=== PATIENT | female | born 1995 | race African-American/Black ===

== ENCOUNTER 2019-09-15 08:01 | Emergency (ER) | payer SELFPAY ==
[2019-09-15] MEDS ORDERED: Acetaminophen 325 MG TAB ONE (08:42)
== END 2019-09-15 08:54 | disposition home or self-care (01) ==
LOC: ERS 08:01
DX: M79.10 Myalgia, unspecified site (principal)
CPT/HCPCS: 87804; 99284

== ENCOUNTER 2022-09-06 13:24 | Emergency (ER) | payer SELFPAY ==
[2022-09-06] MEDS ORDERED: Ibuprofen 800 MG TAB ONE (13:47)
== END 2022-09-06 14:49 | disposition home or self-care (01) ==
LOC: ERS 13:24
DX: U07.1 COVID-19 (principal); J06.9 Acute upper respiratory infection, unspecified
CPT/HCPCS: 87081; 87430; 87804; 99283; U0003; U0005

== ENCOUNTER 2022-12-27 11:40 | Emergency (ER) | payer SELFPAY ==
[2022-12-27 13:15] LABS: SARS-CoV-2 NAA Rapid Test Not Detected (NotDetected)
== END 2022-12-27 12:34 | disposition home or self-care (01) ==
LOC: ERS 11:40
DX: B34.9 Viral infection, unspecified (principal); Z20.822 Contact with and (suspected) exposure to COVID-19
CPT/HCPCS: 99283

== ENCOUNTER 2023-09-19 14:54 | Emergency (ER) | payer SELFPAY ==
[2023-09-19] MEDS ORDERED: Dexamethasone 10 MG/ML VIAL ONE (16:00)
[2023-09-19] MEDS ORDERED: Ketorolac Tromethamine 30 MG/ML VIAL ONE (16:00)
== END 2023-09-19 16:05 | disposition home or self-care (01) ==
LOC: ERS 14:54
DX: J02.8 Acute pharyngitis due to other specified organisms (principal)
CPT/HCPCS: 87081; 87430; 99282; J1100; J1885

== ENCOUNTER 2023-09-27 20:01 | Emergency (ER) | payer SELFPAY | END 2023-09-27 21:11 | disposition home or self-care (01) | LOC: ERS 20:01 | DX: S93.402A Sprain of unspecified ligament of left ankle, initial encounter (principal); X50.9XXA Other and unspecified overexertion or strenuous movements or postures, initial encounter ==

== ENCOUNTER 2023-10-03 19:19 | Emergency (ER) | payer SELFPAY ==
[2023-10-03] MEDS ORDERED: Acetaminophen 500 MG TAB ONE (20:45)
[2023-10-03] MEDS ORDERED: Ibuprofen 200 MG TAB ONE (20:45)
[2023-10-03 22:00] LABS: SARS-CoV-2 NAA Rapid Test Not Detected (NotDetected)
== END 2023-10-03 22:43 | disposition home or self-care (01) ==
LOC: ERS 19:19
DX: J10.1 Influenza due to other identified influenza virus with other respiratory manifestations (principal)
CPT/HCPCS: 99283